=== PATIENT | male | born 1965 | race Caucasian/White ===

== ENCOUNTER 2020-06-27 14:15 | Emergency (ER) | payer OTHER ==
[2020-06-27] MEDS ORDERED: guaiFENesin/CODEINE 10 ML UNIT-DOSE CUPS PO ONE (14:32)
[2020-06-27] MEDS ORDERED: DEXAMETHASONE SOD PHOSPHATE 10 MG/1 ML VIAL IM ONE (14:32)
[2020-06-27 14:33] VITALS: BP 139/93; TEMP 99.9; BMI 33.0
[2020-06-27] MEDS ORDERED: ACETAMINOPHEN 500 MG TABLET (FP) PO ONE (14:36)
[2020-06-27] MEDS ORDERED: guaiFENesin/CODEINE 5 ML UNIT-DOSE CUPS PO ONE (14:40)
[2020-06-27] MEDS ORDERED: ACETAMINOPHEN 325 MG TABLET (FP) ONE (14:41)
[2020-06-27] MEDS ORDERED: DEXAMETHASONE SOD PHOSPHATE 10 MG/1 ML VIAL ONE (14:41)
[2020-06-27 16:35] VITALS: PULSE 100
== END 2020-06-27 16:33 | disposition home or self-care (01) ==
LOC: JCOVINFU 14:15
PROC: 3E0233Z Introduction of Anti-inflammatory into Muscle, Percutaneous Approach (ICD-10-PCS; principal; 2020-06-27)
DX: U07.1 COVID-19 (principal)
CPT/HCPCS: 71046-TC-FY; 99284-25; J1100